=== PATIENT | female | born 1950 | race Caucasian/White ===

== ENCOUNTER 2016-03-09 10:04 | Emergency (ER) | payer BC, OTHER ==
[~2016-03-09] VITALS: Ht 165.1 cm; Wt 106.6 kg
--- NOTE | ~2016-03-09 | EKG ---
[place] [address] [place] [address] ELECTROCARDIOGRAM REPORT Name: SNOW CARVAJAL Room #: [facility] M.R.#: [id number] Admission: Attend Phys: Discharge: Date of : 54 Report #: [id number] THIS REPORT FOR: //name// [facility] ED Test Date: 2016-03-09 Test Time: 10:30:37 Pat Name: SNOW CARVAJAL Department: Room: Gender: F Aerospace Technician: Christiano MONTALVO : 1950 Requested By: Mia Morelos Order Number: [id number] MD: Sagar Reid Measurements Intervals [place] Rate: 83 P: 34 OK: 160 QRS: 11 QRSD: 90 T: 80 QT: 350 QTc: 412 Interpretive Statements Sinus rhythm Nonspecific T wave abnormalities No previous ECG available for comparison Electronically Signed On 03-09-2016 10:48:04 FITNESS DIRECTOR by Sagar Reid [email or web address] <ELECTRONICALLY SIGNED> By: Sagar Reid MD 03/09/16 1048 1030 1030 Sagar Reid MD /EPI
[~2016-03-09 10:04] MED LIST: IBUPROFEN 600600 M1 PO; NORFLEX100 MG PO
[2016-03-09 10:34] LABS: URINE BILIRUBIN NEGATIVE (Negative); URINE BLOOD NEGATIVE (Negative); URINE COLOR YELLOW; URINE GLUCOSE-RANDOM* NEGATIVE (Negative); URINE KETONES NEGATIVE (Negative); URINE LEUKOCYTES-REFLEX NEGATIVE (Negative); URINE PROTEIN (DIPSTICK) 1+ (Negative); URINE SPECIFIC GRAVITY >= 1.030 (1.003-1.035); URINE UROBILINOGEN 0.2 E.U./dl (0.2-1.0)
[2016-03-09 10:45] LABS: CASTS None Seen /LPF (None Seen); CRYSTALS None Seen /LPF (None Seen); SQUAMOUS >10 Many /LPF (0-3); URINE RBC None Seen /HPF (0-2); URINE WBC-REFLEX 0-5 Rare /HPF (0-5)
[2016-03-09 10:50] LABS: HEMATOCRIT 47.8 % (37.0-47.0); HEMOGLOBIN 16.2 gm/dL (12.0-15.0); MCH 30.7 pg (26.0-34.0); MCHC 33.9 % (28.0-37.0); MCV 90.5 fL (80.0-100.0); PLATELET COUNT 257 thou/uL (150-400); RBC 5.28 mil/uL (4.20-5.00); RDW 13.2 % (10.5-14.5); WBC 12.6 thou/uL (4.0-11.0)
[2016-03-09 10:53] LABS: MANUAL DIFF YES
[2016-03-09 10:55] LABS: CALCIUM 8.8 mg/dL (8.5-10.1); POTASSIUM 3.9 mmol/L (3.5-5.1)
[2016-03-09 11:01] LABS: ALBUMIN 3.6 g/dL (3.4-5.0); TOTAL BILIRUBIN 0.6 mg/dL (<0.1-1.0); TOTAL PROTEIN 7.7 g/dL (6.4-8.2)
[2016-03-09 12:17] LABS: ABSOLUTE NEUTROPHILS 10.8 thou/uL (1.4-8.2); ANISOCYTOSIS SLIGHT; TOTAL CELL COUNT 100
[2016-03-09] MEDS ORDERED: BENTYL 20 MG TA20 M1 PO (12:52)
[2016-03-09] MEDS ORDERED: CIPRO500 MG PO (12:52)
[2016-03-09] MEDS ORDERED: FLAGYL500 MG PO (12:52)
[2016-03-09] MEDS ORDERED: PHENERGAN 25 MG25 M1 PO (12:52)
[2016-03-09 13:33] VITALS: BP 150/59
== END 2016-03-09 13:34 | disposition home or self-care (01) ==
LOC: ER 10:04
PROVIDERS: Physician Assistant
DX: R19.7 Diarrhea, unspecified (principal); Z98.890 Other specified postprocedural states; Z88.2 Allergy status to sulfonamides; F10.99 Alcohol use, unspecified with unspecified alcohol-induced disorder